=== PATIENT | male | born 1980 | race American Indian/Alaskan Native ===

== ENCOUNTER 2019-09-30 08:44 | Outpatient (CLI) | payer BC ==
[2019-09-30 09:30] LABS: BASOPHILS # (AUTO) 0.1 X10'3 (0-0.2); BASOPHILS % (AUTO) 0.7 % (0-1); EOSINOPHILS # (AUTO) 0.1 X10'3 (0-0.9); EOSINOPHILS % (AUTO) 1.1 % (0-6); HEMATOCRIT 44.8 % (42.0-52.0); LYMPHOCYTES # (AUTO) 2.1 X10'3 (1.1-4.8); LYMPHOCYTES % (AUTO) 24.6 % (21-51); MEAN CORPUSCULAR HEMOGLOBIN 27.4 PG (27.0-31.0); MEAN CORPUSCULAR HGB CONC 33.5 g/dL (33.0-36.5); MEAN PLATELET VOLUME 8.1 FL (7.4-10.4); MONOCYTES # (AUTO) 0.7 X10'3 (0-0.9); MONOCYTES % (AUTO) 8.6 % (2-12); NEUTROPHILS # (AUTO) 5.6 X10'3 (1.8-7.7); PLATELET COUNT 283 X10'3 (140-440); RED BLOOD COUNT 5.47 X10'6 (4.70-6.10); RED CELL DISTRIBUTION WIDTH 14.4 % (11.5-14.5); WHITE BLOOD COUNT 8.6 X10'3 (4.5-11.0)
[2019-09-30 09:46] LABS: CLARITY,URINE CLEAR (Clear); COLOR,URINE YELLOW (Yellow); GLUCOSE, URINE NEGATIVE (Neg); KETONES,URINE NEGATIVE (Neg); LEUKOCYTE ESTERASE ,URINE NEGATIVE (Neg); NITRITES, URINE NEGATIVE (Neg); OCCULT BLOOD,URINE NEGATIVE (Neg); PH,URINE 5.5 (4.8-8.0); PROTEIN,URINE NEGATIVE (Neg); UROBILINOGEN,URINE 0.2 E.U/dL (0.2-1.0)
[2019-09-30 09:53] LABS: UA COLLECTION TYPE VOIDED
[2019-09-30 10:09] LABS: ALANINE AMINOTRANSFERASE 35 U/L (12-78); ALBUMIN/GLOBULIN RATIO 1.1 (1.1-1.5); ALKALINE PHOSPHATASE 84 IU/L (46-116); ANION GAP 12 (8-16); ASPARTATE AMINO TRANSFERASE 14 U/L (10-37); BILIRUBIN,TOTAL 0.3 MG/DL (0.1-1.0); BLOOD UREA NITROGEN 13 MG/DL (7-18); BUN/CREATININE RATIO 11.7 (5.4-32.0); C-REACTIVE PROTEIN 0.18 MG/DL (0.0-0.5); CALCIUM 8.9 MG/DL (8.5-10.1); CHLORIDE 106 MMOL/L (99-107); CHOL/HDL RATIO 4.5 (0.00-4.99); CHOLESTEROL 183 MG/DL (0-200); CREATININE 1.11 MG/DL (0.60-1.10); GLUCOSE 118 MG/DL (70-104); HDL CHOLESTEROL 41 MG/DL (35-60); LDL CHOLESTEROL 108 MG/DL (50-100); PHOSPHORUS 2.7 MG/DL (2.3-4.5); POTASSIUM 3.9 MMOL/L (3.5-5.1); SODIUM 140 MMOL/L (135-145); TOTAL CARBON DIOXIDE 22.4 MMOL/L (24-32); TOTAL PROTEIN 7.7 G/DL (6.4-8.2); TRIGLYCERIDES 274 MG/DL (20-135); eGFR 73 ML/MIN
[2019-10-01 11:16] LABS: HEPATITIS C ANTIBODY <0.1 s/co ratio (0.0-0.9)
[2019-10-01 13:12] LABS: GAMMA GLUTAMLY TRANSPEPTIDASE 70 IU/L (0-65); MICROALB/CRT, RATIO 5 mg/g creat (0-29); THYROID PEROXIDASE AB <9 IU/mL (0-34)
== END 2019-09-30 23:59 | disposition home or self-care (01) ==
LOC: RAD 08:44
PROVIDERS: ATTEND Family Medicine
DX: Z00.00 Encounter for general adult medical examination without abnormal findings (principal); M50.321 Other cervical disc degeneration at C4-C5 level; E03.9 Hypothyroidism, unspecified; M79.671 Pain in right foot
CPT/HCPCS: 36415; 72050; 73630; 76536; 80053; 80061; 81003; 82043; 82306; 82330; 82570; 82607; 82746; 82977; 83970; 84100; 84402; 84403; 84439; 84443; 84550; 85025; 85651; 86140; 86376; 86803